=== PATIENT | male | born 1995 | race Caucasian/White ===

== ENCOUNTER 2019-10-14 12:13 | Emergency (ER) | payer MEDICAID ==
[~2019-10-14] VITALS: Ht 190.5 cm; Wt 109.0 kg
--- NOTE | 2019-10-14 12:53 | NUR ---
BIB BY [facility] AFTER WITNESSED "seizure like event" at roughly 11"15am [facility] REPORTS PATIENT NON RESPONSIVE BUT PROTECTING AIRWAY & CORNEAL REFLEX IN PLACE FSBS 128, VSS SEZURE PRECAUTIONS PLACED On arrival: No assessed trauma. Perrla , conversive, no focal deficits. complaining of left jaw and right head pain
[2019-10-14] MEDS ORDERED: OXYcodone/APAP 5/325MG TABLET PO ONE (13:30)
--- NOTE | 2019-10-14 13:30 | NUR ---
PLACED IN C-COLLAR PER PROVIDER REQUEST REMAIN AWAKE/INTERACTIVE. NO DEFICITS NOTED
[2019-10-14 13:44] LABS: MEAN CORPUSCULAR HEMOGLOBIN 32.4 pg (27.5-34.5); MEAN CORPUSCULAR HGB CONC 34.6 g/dL (33.2-36.2); MEAN CORPUSCULAR VOLUME 93.4 fL (81-97); MEAN PLATELET VOLUME 8.7 fL (7.4-10.4); PLATELET COUNT 221 x10^3/uL (130-400); RED BLOOD COUNT 4.77 x10^6/uL (4.38-5.82); RED CELL DISTRIBUTION WIDTH 12.6 % (9.4-14.8)
[2019-10-14 13:56] LABS: ANION GAP 8 mmol/L (5-15); CHLORIDE 106 mmol/L (98-107)
[2019-10-14 13:57] LABS: ALBUMIN 3.7 g/dL (3.4-5.0)
[2019-10-14 14:00] LABS: ALANINE AMINOTRANSFERASE 31 U/L (12-78); ALKALINE PHOSPHATASE 65 U/L (45-117); CREATININE 0.97 mg/dL (0.7-1.3); TOTAL PROTEIN 7.5 g/dL (6.4-8.2)
[2019-10-14 14:01] LABS: BASOPHILS # (AUTO) 0.03 x10^3/uL (0-0.1); BASOPHILS % (AUTO) 0 % (0-1); EOSINOPHILS # (AUTO) 0.01 x10^3/uL (0-0.4); EOSINOPHILS % (AUTO) 0 % (1-7); LYMPHOCYTES # (AUTO) 0.62 x10^3/uL (1-3.4); LYMPHOCYTES % (AUTO) 4 % (22-44); MD SCAN; MONOCYTES # (AUTO) 1.74 x10^3/uL (0.2-0.8); MONOCYTES % (AUTO) 10 % (2-9); NEUTROPHILS # (AUTO) 14.78 x10^3/uL (1.8-6.8); NEUTROPHILS % (AUTO) 86 % (42-75)
[2019-10-14] MEDS ORDERED: OXYcodone/APAP 5/325MG TABLET ONE (14:30)
--- NOTE | 2019-10-14 14:34 | NUR ---
MEDICATED PER EMAR TO CT SCAN AT 1430P
[2019-10-14 14:55] VITALS: BP 132/56
--- NOTE | 2019-10-14 15:09 | NUR ---
PAIN IMPROVED TO 3/10. REMAINS ASYMPTOMATIC PROVIDER MADE AWARE THAT EXAM UNCHANGED/ALL TESTING RESULTED/NEED TO HAVE C-COLLAR REMOVED
[2019-10-14] MEDS ORDERED: ONDANSETRON ODT 8 MG ONE (15:27)
[2019-10-14] MEDS ORDERED: DIVALPROEX 500 MG TABLET.DR ONE (15:27)
[2019-10-14] MEDS ORDERED: LEVETIRACETAM 500 MG TABLET ONE (15:28)
[2019-10-14] MEDS ORDERED: DIVALPROEX 500 MG TABLET.DR PO ONE (15:30)
[2019-10-14] MEDS ORDERED: LEVETIRACETAM 500 MG TABLET PO SCH (15:30)
[2019-10-14] MEDS ORDERED: ONDANSETRON ODT 8 MG PO ONE (15:30)
--- NOTE | 2019-10-14 16:59 | NUR ---
AWAITING CHART FROM MD FOR DC. NAD NOTED IN PT AT THIS TIME, RESTING BACK IN BED, FRIEND AT BEDSIDE.
== END 2019-10-14 17:12 | disposition home or self-care (01) ==
LOC: ED 17:00
DX: G40.909 Epilepsy, unspecified, not intractable, without status epilepticus (principal)
CPT/HCPCS: 36415; 70450; 72125; 80053; 83605; 85025; 93005; 99284; Q0162

== ENCOUNTER 2019-12-07 19:39 | Emergency (ER) | payer MEDICAID, OTHER ==
[~2019-12-07] VITALS: Ht 190.5 cm; Wt 85.9 kg
--- NOTE | 2019-12-07 20:03 | NUR ---
PT BIB EMS AFTER GRANDMAL SEIZURE. ROOM MATES REPORT SEIZURE ACTIVITY FOR APPX 25 MIN, EMS REPORTS SOME SEIZURE ACTIVITY, BUT DID NOT SEE GRAND MAL SEIZURE. PT PRESENTS TO ED WITH WARM, PINK SKIN, NEGATIVE FOR CYANOSIS AROUND LIPS OR ON FINGER TIPS. PT AOX4 BUT REQUIRES STERNAL RUB TO AWAKE. EMS GAVE PT 5 MG VERSED THROUGH 18G IV IN RIGHT FA. PT HAS SEIZURE HX AND TAKES DEPAKOTE 500MG AND KEPPRA 1150MG. PT WAS ADMITTED TO [facility] X2 WEEKS AGO POST SEIZURE, REPORTS BEING INTUBATED DURING STAY. PT PLACED ON ALL MONITORING, CALL LIGHT WITHN REACH, X2 RAILS RAISED.
[2019-12-07] MEDS ORDERED: [UNRECOGNIZED DRUG - CODE] PO (20:05)
[2019-12-07] MEDS ORDERED: DIVA500T4 PO (20:05)
[2019-12-07] MEDS ORDERED: LEVETIRACETAM 500 MG in SODIUM CHLORIDE 0.9% 100 ML IV ONE (20:30)
[2019-12-07 20:31] LABS: BASOPHILS # (AUTO) 0.02 x10^3/uL (0-0.1); BASOPHILS % (AUTO) 0 % (0-1); EOSINOPHILS # (AUTO) 0.01 x10^3/uL (0-0.4); EOSINOPHILS % (AUTO) 0 % (1-7); LYMPHOCYTES # (AUTO) 0.68 x10^3/uL (1-3.4); LYMPHOCYTES % (AUTO) 8 % (22-44); MD NO; MEAN CORPUSCULAR HEMOGLOBIN 32.2 pg (27.5-34.5); MEAN CORPUSCULAR HGB CONC 34.6 g/dL (33.2-36.2); MEAN CORPUSCULAR VOLUME 93.2 fL (81-97); MEAN PLATELET VOLUME 8.5 fL (7.4-10.4); MONOCYTES # (AUTO) 0.51 x10^3/uL (0.2-0.8); MONOCYTES % (AUTO) 6 % (2-9); NEUTROPHILS # (AUTO) 7.63 x10^3/uL (1.8-6.8); NEUTROPHILS % (AUTO) 86 % (42-75); PLATELET COUNT 271 x10^3/uL (130-400); RED BLOOD COUNT 4.76 x10^6/uL (4.38-5.82); RED CELL DISTRIBUTION WIDTH 12.2 % (9.4-14.8)
[2019-12-07 20:40] LABS: ALANINE AMINOTRANSFERASE 26 U/L (12-78); ALBUMIN 3.7 g/dL (3.4-5.0); ANION GAP 6 mmol/L (5-15); CALCIUM 8.7 mg/dL (8.5-10.1); CHLORIDE 107 mmol/L (98-107)
[2019-12-07 20:42] LABS: ALKALINE PHOSPHATASE 75 U/L (45-117); BILIRUBIN,TOTAL 0.4 mg/dL (0.2-1.0); CREATININE 0.95 mg/dL (0.7-1.3); TOTAL PROTEIN 7.8 g/dL (6.4-8.2)
[2019-12-07 21:21] VITALS: BP 133/62
--- NOTE | 2019-12-07 21:24 | NUR ---
PT MUCH MORE ALERT. AOX4. PT WATCHING TELEVISION AND CONVERSING. PT DENIES ANY COMPLAITS AT THIS TIME. INQUIRING ABOUT D/C. PT UPDATED ON POC. MONITORING IN PLACE. MEDICATED PER NOV. CALL LIGHT WITHIN REACH.
--- NOTE | 2019-12-07 21:34 | NUR ---
PT PROVIDED SANDWICH AND WATER PER MD.
== END 2019-12-07 22:55 | disposition home or self-care (01) ==
LOC: EDBD 19:39 → MERGE 19:39 → ED 21:00
DX: G40.409 Other generalized epilepsy and epileptic syndromes, not intractable, without status epilepticus (principal); R00.1 Bradycardia, unspecified; Z72.9 Problem related to lifestyle, unspecified; F17.290 Nicotine dependence, other tobacco product, uncomplicated
CPT/HCPCS: 36415; 80053; 80164; 85025; 93005; 96365; 99284; J1953